=== PATIENT | female | born 2000 | race Caucasian/White ===

== ENCOUNTER 2025-03-11 08:07 | Outpatient (CLI) | payer OTHER, SELFPAY ==
[2025-03-17 10:06] LABS: Pap Test Digital Imaging Done
== END 2025-03-11 08:08 | disposition home or self-care (01) ==
PROVIDERS: PCP Nurse Practitioner Family; Visit Provider Nurse Practitioner Family
DX: D50.9 Iron deficiency anemia, unspecified (principal); R53.83 Other fatigue; E66.3 Overweight; Z68.31 Body mass index [BMI] 31.0-31.9, adult; Z13.1 Encounter for screening for diabetes mellitus; Z12.4 Encounter for screening for malignant neoplasm of cervix
CPT/HCPCS: 80061; 82728; 82947; 84443; 87624; 87625; 88141; 88142; 88175